=== PATIENT | female | born 1965 | race Caucasian/White ===

== ENCOUNTER 2024-04-02 03:18 | Emergency (ER) | payer BC ==
[2024-04-02] MEDS ORDERED: Sodium Chloride 0.9% 10 ML Syringe FLUSH PRN (04:03)
[2024-04-02 04:09] LABS: BASOPHILS ABSOLUTE AUTO 0.04 K/uL (0.02-0.10); BASOPHILS PERCENT AUTO 0.5 % (0.0-0.5); EOSINOPHILS ABSOLUTE AUTO 0.08 K/uL (0.04-0.40); EOSINOPHILS PERCENT AUTO 1.1 % (1.0-5.0); HEMATOCRIT 45.8 % (37.0-47.0); HEMOGLOBIN 15.5 g/dL (11.5-16.5); LYMPHOCYTES ABSOLUTE AUTO 1.93 K/uL (1.50-4.00); LYMPHOCYTES PERCENT AUTO 26.3 % (20.0-40.0); MEAN CORPUSCULAR HEMOGLOBIN 29.9 pg (27.0-32.0); MEAN CORPUSCULAR HGB CONC 33.8 g/dL (31.0-35.0); MEAN CORPUSCULAR VOLUME 88 fL (76-96); MEAN PLATELET VOLUME 10.8 fL (6.0-10.0); MONOCYTES ABSOLUTE AUTO 0.65 K/uL (0.20-0.80); MONOCYTES PERCENT AUTO 8.8 % (3.0-10.0); NEUTROPHILS ABSOLUTE AUTO 4.65 K/uL (2.00-7.50); NEUTROPHILS PERCENT AUTO 63.3 % (45.0-70.0); PLATELET COUNT,PLT 116 K/uL (150-500); RED BLOOD CELL COUNT 5.18 M/uL (3.80-5.80); RED CELL DISTRIBUTION WIDTH 13.2 % (11.0-16.0); WHITE BLOOD CELL COUNT,WBC 7.4 K/uL (4.0-11.0)
[2024-04-02] MEDS: Albuterol/Ipratropium 3.0-0.5 MG/3 ML Neb Soln NEB SCH (04:11)
[2024-04-02 04:52] LABS: A/G RATIO 0.9 (0.8-2.0); ALBUMIN 3.3 g/dL (3.4-5.0); ANION GAP 16.1 mmol/L (5.0-15.0); BILIRUBIN TOTAL 1.6 mg/dL (0.0-1.0); CALCIUM 8.7 mg/dL (8.5-10.1); CARBON DIOXIDE,CO2 25.3 mmol/L (21.0-32.0); CREATININE 0.75 mg/dL (0.55-1.02); EST CRCL DRUG DOSING (CG) 66.24 mL/min; POTASSIUM,K 3.4 mmol/L (3.5-5.1); TROPONIN I HIGH SENSITIVITY 19.1 pg/ml (<=60.4)
[2024-04-02] MEDS: Potassium Chloride Riders 10 MEQ in Premix Bag 1 BAG IV ONE (05:14)
[2024-04-02] MEDS: Sodium Chloride 0.9% 500 ML IV ONE (05:16)
[2024-04-02] MEDS: Potassium Chloride Riders 50 ML ONE (05:19)
== END 2024-04-02 07:25 | disposition home or self-care (01) ==
LOC: LB.ED 03:18
DX: J45.21 Mild intermittent asthma with (acute) exacerbation (principal); F17.210 Nicotine dependence, cigarettes, uncomplicated; E11.9 Type 2 diabetes mellitus without complications; E66.9 Obesity, unspecified; Z79.84 Long term (current) use of oral hypoglycemic drugs; Z79.899 Other long term (current) drug therapy; Z88.0 Allergy status to penicillin; Z88.8 Allergy status to other drugs, medicaments and biological substances
CPT/HCPCS: 36415; 80053; 84484; 85025; 93005; 94640; 96365; 99285; J3480; J7040; J7620